=== PATIENT | female | born 1985 | race Caucasian/White ===

== ENCOUNTER → 2024-05-30 11:58 | Outpatient (REF) | payer BC, SELFPAY | LOC: DHSLP 11:58 | PROVIDERS: ATTENDING PHYSICIAN Internal Medicine; FAMILY PHYSICIAN Family Medicine | DX: G47.33 Obstructive sleep apnea (adult) (pediatric) (principal); R06.83 Snoring | CPT/HCPCS: 95806 ==

== ENCOUNTER → 2024-06-06 13:20 | Outpatient (REF) | payer BC, SELFPAY | LOC: HWRAD 13:20 | PROVIDERS: ATTENDING PHYSICIAN Obstetrics & Gynecology; FAMILY PHYSICIAN Family Medicine | DX: R10.2 Pelvic and perineal pain (principal) | CPT/HCPCS: 76830; 76856 ==

== ENCOUNTER 2025-01-19 14:27 | Emergency (ER) | payer BC, SELFPAY ==
[2025-01-19 14:29] VITALS: BP 168/94
[2025-01-19 14:45] LABS: Urine Character Clear (Clear)
[2025-01-19 14:46] LABS: Hematocrit 41.5 % (37.0-47.0); Hemoglobin 14.2 g/dL (12.0-16.0); Mean Corp Hgb Conc. 34.2 g/dL (33.0-37.0); Mean Corpuscular Volume 81.9 fL (81.0-99.0); Nucleated Red Blood Cells % 0 %; Platelet Count 371 10^3/uL (130-400); Red Cell Dist. Width 13.4 % (11.5-14.5)
[2025-01-19 15:09] LABS: HCG, Serum Qualitative Screen Negative
[2025-01-19 15:13] LABS: ALT (SGPT) 16 U/L (0-35); AST (SGOT) 19 U/L (14-36); Albumin 5.1 g/dl (3.5-5.0); Alkaline Phosphatase 33 U/L (38-126); Blood Urea Nitrogen 17 mg/dl (7-17); Calcium 10.1 mg/dl (8.4-10.2); Carbon Dioxide 26 mmol/L (22-30); Chloride 104 mmol/L (98-107); Glucose 96 mg/dl (70-99); Lipase 106 U/L (23-300); Potassium 4.1 mmol/L (3.5-5.1); Sodium 139 mmol/L (135-145); Total Protein 7.9 g/dl (6.3-8.2); eGFR > 60.00
--- NOTE | 2025-01-19 16:23 | ED.GENMED ---
History of Present Illness
General
Chief Complaint: Abdominal Pain
Source: patient
Exam Limitations: none
Time Seen by Provider: 01/19/25 16:06
Nursing documentation reviewed up to this point in time: agreed with
History of Present Illness
History of Present Illness:
Patient to ED with RLQ abdominal pain. Symptoms started on monday and continue. She denies fever/chills. +nausea, no vomiting or diarrhea. Appetite decreased. Brought self to ED for eval.
Past History
Past History
ED Past Medical History: None
ED Past Surgical History: and Orthopedic (spinal fusion)
Review of Systems
Review of Systems
Allergies reviewed?: Yes
All Other Systems: ROS reviewed and negative except as documented in HPI and ROS
Constitutional: Reports no symptoms
EENT: Reports no symptoms
Respiratory: Reports no symptoms
Cardiac: Reports no symptoms
ABD/GI: Reports abdominal pain (RLQ) and nausea
: Reports no symptoms
Musculoskeletal: Reports no symptoms
Skin: Reports no symptoms
Neurological: Reports no symptoms
Psychiatric: Reports no symptoms
Phy Exam
General Physical Exam
General Presentation: well appearing and mild distress
General age: appears stated age
General Skin: warm and dry
General Habitus: normal
General Mental: alert
Gastrointestinal Exam
Gastrointestinal Exam: normal bowel sounds, soft, no organomegaly, no pulsatile mass and non distended
Palpation: left upper quadrant: No tenderness, left lower quadrant: No tenderness, right upper quadrant: No tenderness and right lower quadrant: Moderate tenderness
Musculoskeletal Exam
Musculoskeletal Exam: full ROM and neuro vasc intact
Skin Exam
Skin Exam: normal color, warm/dry and no rash
Psychiatric Exam
Psychiatric Exam: normal mood/affect
Course
Orders/Labs/Results
Orders:
Orders
01/19/25 14:31
Test Result ONCE
01/19/25 14:37
Complete Blood Count/With Diff Urgent
Comprehensive Metabolic Panel Urgent
HCG, Serum Qualitative Screen Urgent
Lipase Urgent
Urinalysis Reflex To Culture Urgent
Date Specimen was Collected: 01/19/25
Time Specimen was Collected: 14:31
01/19/25 16:22
Iohexol [Omnipaque] See Protocol PO NOW STA
Pelvis (Non Obstetric) US [US Pelvis Only (non-obstetric)] Urgent
Comment:
Reason For Exam: right pelvic pain
01/19/25 19:08
CT Abd/pel W Iv And Oral Contr Urgent
Comment:
Reason For Exam: RLQ PAIN
Iohexol [Omnipaque] See Protocol PO NOW STA
Abnormal Lab Results
01/19/25
14:37
Alkaline Phosphatase 33 L U/L
(38-126)
Albumin 5.1 H g/dl
(3.5-5.0)
01/19/25 14:37
01/19/25 14:37
Vital Signs
Initial and Last Documented VS:
Initial Vital Signs
Temp Pulse Resp BP Pulse Ox
97.7 F 85 17 168/94 99
01/19/25 14:29 01/19/25 14:29 01/19/25 14:29 01/19/25 14:29 01/19/25 14:29
Last Documented Vital Signs
Temp Pulse Resp BP Pulse Ox
97.7 F 70 18 131/93 98
01/19/25 14:29 01/19/25 20:42 01/19/25 20:42 01/19/25 20:42 01/19/25 20:42
*Radiology
Radiology exam reviewed: radiology read reviewed
*Pulse Oximetry
SaO2: 99
Oxygen Mode of Delivery: Room air
Patient hypoxic: no
*Critical Care Note
Total Time (30-74mins, 75-104mins- exclusive of procedures): Not Applicable
Update Note
Update Note:
Patient to ED with complaint of RLQ abdominal pain x 2 days. VSS, she remains afebrile. WBC 6.8. CMP, UA without concernng findings. Pelvic ultrasound WNL. Abd. CT without findings to explain her pain. (small fat containing umbilical hernia
noted, she was notified of findings, no umbilical pain). Reviewed lab and inaging results with her. Will discharge home, she will continue to monitor her symptoms. Follow up this week with PCP. Given instructions on s/s tor eturn to ED and she
agreeable to plam
ED Attending Note
-
Portions of this chart may have been created with voice recognition software.� Occasional wrong word or��sound alike� substitutions may have occurred due to the inherent limitations of voice recognition software.
Discharge Plan
Departure
Patient Disposition: Home (Routine Discharge)
Date of Disposition: 01/19/25
Time of Disposition: 20:40
Patient with high blood pressure during this ER visit?: No
Condition: Good
Covid-19: Not Applicable
Discharge Problem:
Abdominal pain
Instructions: Abdominal Pain
Referrals:
UNKNOWN - PT DOES,NOT KNOW [Unknown Provider]
Activity Restrictions/Additional Instructions:
Follow up with your family doctor. Return to the emergency department immediately for any changes in/worsening of your symptoms.
Interventions
Interventions:
*Risk Screen - Suicide Last Done: 01/19/25 14:31
*General Assessment Last Done: 01/19/25 14:31
*Neglect/Abuse Screening Last Done: 01/19/25 14:31
*ED- Fall Risk Assessment Last Done: 01/19/25 16:43
*ED COVID-19 Vaccine History Last Done: 01/19/25 14:31
*Nursing Disposition Last Done: 01/19/25 20:43
KO-Bwydok-Bouujrxypq Assessment Last Done: 01/19/25 17:14
Discharge Date and Time
Discharge Date/Time: 01/19/25 20:59
Print Language: GUATEMAL[place]
[2025-01-19] MEDS: OMNIPAQUE 50 ML PO (16:40)
[2025-01-19 16:43] VITALS: BMI 27.6
[2025-01-19 16:49] VITALS: BP 133/88
[2025-01-19 20:42] VITALS: BP 131/93
== END 2025-01-19 20:59 | disposition home or self-care (01) ==
LOC: EMR 14:27
PROVIDERS: Emergency Medicine; EMERGENCY PHYSICIAN Emergency Medicine; FAMILY PHYSICIAN Family Medicine
DX: R10.31 Right lower quadrant pain (principal); R10.2 Pelvic and perineal pain; R11.0 Nausea; K42.9 Umbilical hernia without obstruction or gangrene; Z98.1 Arthrodesis status
CPT/HCPCS: 99284; 74177; 76856; 80053; 81003; 83690; 84703; 85025; Q9967